=== PATIENT | male | born 1975 | race African-American/Black ===

== ENCOUNTER 2022-08-29 13:46 | Outpatient (CLI) | payer OTHER, SELFPAY ==
--- NOTE | ~2022-08-29 | CT_ITS ---
EXAMINATION: CT thoracic lumbar wo con DATE: 08/29/2022 14:20 INDICATION: Chronic mid to low back pain. TECHNIQUE: Computed tomography (CT) of the thoracic and lumbar spine was performed without intravenou s contrast. Automated exposure control and iterative reconstruction technique were employed. The dose -length product was 2159.37 mGy-cm. COMPARISON: None FINDINGS: CT THORACIC SPINE: There is 6 degrees levocurvature of thoracic spine. There is mild chronic anterior wedging of T12 vertebral body. There is mildly decreased disc height at multiple levels. There is mo derately decreased disc height at T6-T7 and T7-T8. There is multilevel mild to moderate facet joint o steoarthritis. On the right, there is mild neural foraminal stenosis at T2-T3, T7-T8, T9-T10, T10-T11 , and T11-T12. On the left, there is mild neural foraminal stenosis at T2-T3, T9-T10, and T10-T11. On the left, there is moderate neural foraminal stenosis at T11-T12. There is mild central canal stenos is from T6-T7 through T11-T12. There are epidural electrodes at T8. CT LUMBAR SPINE: Bone alignment is normal. There are changes of anterior and posterior fusion procedu res at L5-S1 with interbody devices and pedicle screws. Vertebral body heights are normal. There is m ildly decreased disc height at L1-L2. The following disc levels are specifically discussed: L1-L2: The disc is bulging. There is mild bilateral facet joint osteoarthritis. There is mild bilater al neural foraminal stenosis. There is mild central canal stenosis. L2-L3: The disc is bulging. There is moderate bilateral facet joint osteoarthritis. There is mild deshawn ateral neural foraminal stenosis. There is no central canal stenosis. L3-L4: The disc is bulging. There is moderate bilateral facet joint osteoarthritis. There is mild deshawn ateral neural foraminal stenosis. There is mild central canal stenosis. L4-L5: The disc is bulging. There is severe bilateral facet joint osteoarthritis. There is mild later al neural foraminal stenosis. There is mild central canal stenosis. L5-S1: There is moderate bilateral facet joint hypertrophy. There is moderate bilateral neural forami nal stenosis. There is mild central canal stenosis. IMPRESSION: 1. Moderate thoracic and lumbar spondylosis. 2. Anterior and posterior fusion procedures at L5-S1. Reviewed, dictated and finalized at location A.
== END 2022-08-29 13:47 | disposition home or self-care (01) ==
LOC: CHSIMG 13:50
PROVIDERS: PCP Physician Assistant; Visit Provider Nurse Practitioner Adult Health
DX: M54.14 Radiculopathy, thoracic region (principal); M43.06 Spondylolysis, lumbar region; Z98.1 Arthrodesis status
CPT/HCPCS: 72128; 72131